=== PATIENT | female | born 1985 | race Caucasian/White ===

== ENCOUNTER 2019-02-10 10:01 | Emergency (ER) | payer BC ==
[~2019-02-10] VITALS: Ht 162.6 cm; Wt 63.6 kg
[2019-02-10 10:05] VITALS: Ht 162.6 cm; Wt 63.6 kg
[2019-02-10 10:55] VITALS: BP 128/72
== END 2019-02-10 10:56 | disposition home or self-care (01) ==
LOC: D.ER 10:01
DX: S62.305A Unspecified fracture of fourth metacarpal bone, left hand, initial encounter for closed fracture (principal); W19.XXXA Unspecified fall, initial encounter

== ENCOUNTER 2019-02-12 05:16 | Day surgery (SDC) | payer BC ==
[~2019-02-12] VITALS: Ht 162.6 cm; Wt 62.6 kg
[2019-02-12 05:40] LABS: HEMATOCRIT 39.3 % (36.0-48.0); HEMOGLOBIN 12.8 g/dL (12-16); MCH 30.5 pg (26.0-34.0); MCHC 32.6 g/dL (31.0-37.0); MCV 93.8 fL (80.0-100.0); MEAN PLATELET VOLUME 8.7 fL (7.4-10.4); RBC 4.19 10x6/uL (4.00-5.40); WBC 3.7 10x3/uL (4.8-10.8)
[2019-02-12] MEDS ORDERED: ASCORBIC ACID500 MG PO (06:23)
[2019-02-12 06:30] LABS: HCG URINE NEGATIVE (NEGATIVE)
[2019-02-12 06:31] VITALS: BP 123/79; Ht 162.6 cm; Wt 62.6 kg
[2019-02-12] MEDS ORDERED: DURICEF500 MG PO (07:49)
[2019-02-12] MEDS ORDERED: HYDROCODON-ACE1 EAC7 PO (07:49)
--- NOTE | 2019-02-12 09:11 | NUR ---
DC INSTRUCTIONS GIVEN TO PT/FAMILY. STATE UNDERSTANDING.
--- NOTE | 2019-02-12 09:16 | NUR ---
DC'D IV CATH FULLY INTACT.
--- NOTE | 2019-02-12 09:27 | NUR ---
PT LEFT UNIT VIA WC AT 2675
--- NOTE | 2019-02-12 13:02 | OP ---
PATIENT NAME: SANDRA BLUE MEDICAL RECORD: [id number] :85 LOCATION:[facility] ADMISSION DATE: SURGEON: KINGS OLIVARES DO DATE OF OPERATION: 02/12/2019 PROCEDURE PERFORMED: Left fourth metacarpal open reduction internal fixation. PREOPERATIVE DIAGNOSIS: Left fourth metacarpal shaft fracture. POSTOPERATIVE DIAGNOSIS: Left fourth metacarpal shaft fracture. INDICATIONS: Ms. Blue is a 33-year-old right hand dominant female who fell while hiking this last week and she had x-rays taken that showed an oblique displaced left fourth metacarpal shaft fracture. I informed her of the risks of surgery, which include malrotation, nonunion, malunion, infection, bleeding, damage to nerves and vessels, need for further surgery, removal of plate. She is okay with that and also the option of nonoperative treatment. She decided to go forward with the operative treatment as she will be able to use her hand pretty much right away and that is why she wished to do and she signed the consent. SURGEON: Kings Olivares DO DESCRIPTION OF PROCEDURE: The patient was given a block by anesthesia in the preoperative area, was taken to the operative suite, laid in supine position, given a gram of Ancef preoperatively. Left upper extremity was prepped and draped in sterile fashion. She was sedated and LMA was placed. Time-out was performed and everyone was in agreeance with the correct side, site, patient and procedure. The left hand was then marked over the fourth metacarpal and the left upper extremity was then exsanguinated with an Esmarch and inflated to 250 mmHg, it was up for 28 minutes. Once tourniquet was inflated, careful dissection was made down through the skin to the fourth metacarpal at the shaft, closer to the base. The fracture site was cleaned out. Reduction was made with a K-wire. Once it was a good reduction, through that same K-wire hole, a screw was placed as a lag screw to hold the fracture in place. A plate was then placed on, which was in good position. Screws were placed through the plate securing the fracture very well. Rotation was checked and cascading of the fingers was checked as well and the fourth metacarpal cascaded very well; however, the fourth finger was not malrotated. The tourniquet was then let down and any bleeding was coagulated with the pickup and a Bovie. The skin was then closed with 3-0 Vicryl in an inverted interrupted fashion, 5-0 Monocryl ran on the skin. Steri-Strips were placed on the skin. Adaptic, 4 x 4's, cast padding and a 3 x 12 splint was placed in short ulnar gutter splint from the metacarpal heads to just proximal to the wrist and secured with an Rashid wrap. She was then awakened and taken to recovery in stable condition. ESTIMATED BLOOD LOSS: Minimal. COMPLICATIONS: None. TRANSINT:[id number] Voice Confirmation ID: [id number] DOCUMENT ID: [id number] OPERATIVE REPORT [id number] SANDRA BLUE MICHAEL D, DO at 1302 CC: [id number] DICTATION DATE: 02/12/19 0752 [employer] CLIP ON SUNGLASSES: 02/12/19 1126 [facility] 02/12/19 [id number] [place] [address]
== END 2019-02-12 09:27 | disposition home or self-care (01) ==
LOC: D.OPS 05:16
PROVIDERS: Anesthesiology; ATTEND Orthopaedic Surgery
DX: S62.325A Displaced fracture of shaft of fourth metacarpal bone, left hand, initial encounter for closed fracture (principal); W19.XXXA Unspecified fall, initial encounter

== ENCOUNTER 2020-06-16 15:30 | Outpatient (CLI) | payer BC ==
[2019-02-12 06:31] VITALS: BMI 23.7
[~2020-06-16 15:30] MED LIST: ASCORBIC ACID500 MG PO; DURICEF500 MG PO; HYDROCODON-ACE1 EAC7 PO
[2020-06-16] MEDS ORDERED: COLACE100 MG PO (16:03)
[2020-06-16] MEDS ORDERED: ACETAMINOPHEN500 M1 PO (16:03)
[2020-06-16] MEDS ORDERED: PRENAVITE1 TAB PO (16:03)
[2020-06-16] MEDS ORDERED: MIRALAX17 GM PO (16:03)
[2020-06-16 16:55] LABS: BASOPHILS 0.1 % (0-2); EOSINOPHILS 0.4 % (0-7); HEMATOCRIT 34.5 % (36.0-48.0); HEMOGLOBIN 11.5 g/dL (12-16); IMMATURE GRANULOCYTES 0.4 % (0-5); LYMPHOCYTE ABS# 1.36 10x3/uL (1.18-3.74); LYMPHOCYTES 18.6 % (15-50); MCH 29.5 pg (26.0-34.0); MCHC 33.3 g/dL (31.0-37.0); MCV 88.5 fL (80.0-100.0); MONOCYTES 9.7 % (2-11); NEUTROPHIL ABS# 5.19 10x3/uL (1.56-6.13); NEUTROPHILS 70.8 % (40-80); PLATELET COUNT 296 10x3/uL (130-400); RDW 12.4 % (11.5-14.5); WBC 7.3 10x3/uL (4.8-10.8)
[2020-06-16 17:04] LABS: CALC OSMOLALITY 268 mosm/kg (275-300); CALCIUM 8.4 mg/dL (8.5-10.1); CARBON DIOXIDE 23.5 mmol/L (21.0-32.0); CHLORIDE - SERUM 101 mmol/L (98-107); CREATININE - SERUM 0.6 mg/dL (0.6-1.3); GLUCOSE 79 mg/dL (74-106); POTASSIUM - SERUM 3.7 mmol/L (3.5-5.1); SODIUM 135 mmol/L (136-145); UREA NITROGEN 12 mg/dL (7-18); eGFR NON AFRICAN AMERICAN > 90 mL/min (90-120)
[2020-06-16 17:12] LABS: ALBUMIN 2.6 g/dL (3.4-5.0); ALKALINE PHOSPHATASE 209 U/L (30-120); ALT (SGPT) 25 U/L (10-68); BILIRUBIN - DIRECT 0.05 mg/dL (0.00-0.30); BILIRUBIN - INDIRECT 0.27 mg/dL (0.00-1.00); BILIRUBIN - TOTAL 0.32 mg/dL (0.2-1.3); PROTEIN - SERUM 6.5 g/dL (6.4-8.2); URIC ACID 4.5 mg/dL (2.6-7.2)
[2020-06-16 17:13] LABS: BILIRUBIN NEGATIVE (NEGATIVE); KETONE NEGATIVE (NEGATIVE); NITRITE NEGATIVE (NEGATIVE); UROBILINOGEN NORMAL mg/dL (< 2)
[2020-06-16 17:15] LABS: WHITE CELLS - URINE 0-5 HPF (0-4)
[2020-06-16 17:16] LABS: BACTERIA MODERATE HPF (NONE SEEN)
[2020-06-17 18:36] LABS: PROTEIN - URINE 18.8 mg/dL (0.0-11.9)
== END 2020-06-16 18:20 | disposition home or self-care (01) ==
LOC: D.LDO 15:30
PROVIDERS: ATTEND Obstetrics & Gynecology
DX: O16.9 Unspecified maternal hypertension, unspecified trimester (principal)